=== PATIENT | female | born 1995 | race Hispanic/Latino ===

== ENCOUNTER 2020-05-02 07:44 | Outpatient (CLI) | payer OTHER ==
--- NOTE | 2020-05-02 08:48 | ULT ---
ULTRASOUND OBSTETRICAL COMPLETE: DATE: 05/02/2020 HISTORY: ICD-10: O0 6.892, other specified related conditions, second trimester. " "Comments: Complete anatomy, size and dates, and cervical length" FINDINGS: Maternal adnexa: Not visualized. number: teran lie: Variable Maternal cervix: 4.5 cm. Closed. Placenta: Anterior. No placenta previa. Amniotic fluid volume: BLADIMIR = 11.5 cm heart rate: 147 bpm The following anatomy is visualized, with no evidence of anomalies: Head, cerebellum, lateral ventricles, stomach, kidneys, cord insertion, bladder, nose and lips, uppe r extremities, lower extremities, and three-vessel cord. Four-chamber heart and the spine are poorly visualized because of movement and position. biometry: Biparietal diameter (BPD): 5.8 cm 23 w 6 d Head circumference (HC): 21.5 cm 23 w 4 d Abdominal circumference (AC): 19.3 cm 24 w 1 d Femur length (FL): 4.1 cm 23 w 3 d Average ultrasound age (AUA): 23 w 6 d Estimated date of delivery (ARTURO): 08/23/2020 Estimated weight (EFW): 619 g +/- 90 g IMPRESSION: 1) Live 2nd trimester intrauterine gestation. 2) Estimated gestational age of 23 weeks, 6 days 3) variable lie. 4) incomplete evaluation of anatomy due to movement and position.
== END 2020-05-02 07:45 | disposition home or self-care (01) ==
LOC: BICULT 07:44
PROVIDERS: ATTEND Family Medicine
DX: O26.892 Other specified pregnancy related conditions, second trimester (principal); Z3A.23 23 weeks gestation of pregnancy
CPT/HCPCS: 76805

== ENCOUNTER 2023-09-29 08:31 | Emergency (ER) | payer OTHER, SELFPAY ==
[2023-09-29 09:14] LABS: Pregnancy Test - Urine (BHCG) POSITIVE (Negative); Pregu Control Background? CLEAR/WHITE (CLR/WHITE); Pregu Control Bar Appear? YES (CONTROL BAR); Specific Gravity 1.024 (1.002-1.036)
[2023-09-29 09:16] LABS: Bilirubin Negative (Negative); Blood, Urine 3+ (Negative); CAUTI Indications for Culture Pregnancy; Clarity Clear (Clear); Glucose, Urine (Dipstick) Normal (Negative); Ketone, Urine 20 mg/dL (Negative); Leukocyte 75 Leu/uL (Negative); Nitrite Negative (Negative); Protein, Urine (Dipstick) 10 mg/dL (Neg-Trace); RBC/HPF Greater than 50 HPF (0-3); Specific Gravity, Urine 1.024 (1.002-1.036); Urobilinogen Normal mg/dL (Less than 2)
[2023-09-29 09:18] LABS: Bacteria/HPF Rare-Few HPF (None Seen)
[2023-09-29 09:19] LABS: Urine Culture Reflex Yes Yes
[2023-09-29 10:14] LABS: #Basophils 0.03 10x3/uL (0.0-0.2); #Eosinphils Less than 0.03 10x3/uL (0.0-0.7); %Basophils 0.6 % (0.0-1.0); %Eosinophils 0.4 % (0.0-10.0); %Lymphocytes 35.6 % (21.0-51.0); %Monocytes 5.5 % (0.0-10.0); %Neutrophils 57.7 % (42.0-75.0); Hematocrit 41.8 % (36.0-47.0); Mean Corpuscular HGB CONC 33.5 g/dL (32.0-36.0); Mean Corpuscular Hemoglobin 30.8 pg (27.0-31.0); Mean Corpuscular Volume 92.1 fL (78.0-98.0); Mean Platelet Volume 11.3 fL (7.4-10.4); Platelet Count 288 10x3/uL (130-400); Red Blood Cell (RBC) Count 4.54 mill/uL (4.20-5.40)
[2023-09-29 11:18] LABS: Chloride 106 mmol/L (98-107); Sodium 138 mmol/L (136-145)
[2023-09-29 11:19] LABS: Albumin 4.3 g/dL (3.5-5.0); Calcium 9.6 mg/dL (7.8-10.44)
[2023-09-29 11:20] LABS: Globulin 3.5 g/dL (2.4-3.5); Glucose 97 mg/dL (70-105); Protein, Total 7.8 g/dL (6.0-8.3)
[2023-09-29 11:21] LABS: Anion Gap 16 mmol/L (10-20); Carbon Dioxide 20 mmol/L (22-29)
[2023-09-29 11:22] LABS: Bilirubin, Total 0.7 mg/dL (0.2-1.2)
[2023-09-29 11:23] LABS: Alkaline Phosphatase 88 U/L (40-110)
[2023-09-29 11:24] LABS: BUN (Urea Nitrogen) 10 mg/dL (7.0-18.7); Calc. Creatinine Clearance 0 mL/min (70-130); Estimated GFR 119
[2023-09-29 11:25] LABS: ALT (SGPT) 16 U/L (8-55); AST (SGOT) 18 U/L (5-34)
== END 2023-09-29 13:17 | disposition short-term general hospital (02) ==
LOC: ERS 08:31
DX: O00.90 Unspecified ectopic pregnancy without intrauterine pregnancy (principal)
CPT/HCPCS: 36415; 76856; 80053; 81001; 81025; 84702; 85025; 86900; 86901; 87086